=== PATIENT | male | born 1955 | race Caucasian/White ===

== ENCOUNTER 2020-02-04 21:51 | Emergency (ER) | payer OTHER, SELFPAY ==
--- NOTE | ~2020-02-04 | XR_ITS ---
XR hip LT 2V w AP pelvis DATE: 02/04/2020 22:30 INDICATION: Hip injury, pain TECHNIQUE: AP pelvis. AP and lateral views of left hip. COMPARISON: None FINDINGS: Surgical clips overlie the right lower abdomen and left pelvis. The pubic symphysis and sacroiliac joints are intact. No pelvic fracture or bone destruction is detec quang. No fracture or dislocation, avascular necrosis or bone destruction of the left hip. Hip joint sp aces are symmetric and relatively preserved. IMPRESSION: No pelvic or left hip fracture Reviewed, dictated and finalized at location A.
[2020-02-04 22:09] VITALS: BP 159/90; PULSE 64; RESP 16; TEMP 36.7; O2SAT 96
--- NOTE | 2020-02-04 22:09 | ED.LOWEXIN ---
HPI - Extremity Injury (Lower) General Chief Complaint: Extremity Injury, Lower Stated Complaint: pain L hip History of Present Illness HPI Narrative: This 65-year-old male that presents with left hip injury after he twisted it occurred 1 day ago having pain left hip area, has good range of motion with no point tenderness there is tenderness with movement did take Aleve earlier today with minimal relief currently no swelling no bruising. Patient has a history of hemorrhagic stroke with left-sided weakness, currently no fever chills no shortness of breath no nausea vomiting or abdominal pain no chest pain. MD complaint: hip injury Onset (ago): day(s) Injury: Left: hip Type of Injury: inversion Place: home Severity: mild Severity scale (1-10): 4 Relieving factors: NSAID Exacerbating factors: movement Context: fall Related Data Home Medications Medication Instructions Recorded Confirmed atorvastatin 10 mg PO DAILY 02/04/20 02/04/20 divalproex 500 mg PO DAILY 02/04/20 02/04/20 fluoxetine 20 mg PO DAILY 02/04/20 02/04/20 folic acid 1 mg PO DAILY 02/04/20 02/04/20 lisinopril 10 mg PO DAILY 02/04/20 02/04/20 tamsulosin 0.4 mg PO DAILY 02/04/20 02/04/20 Allergies Allergy/AdvReac Type Severity Reaction Status Date / Time No Known Allergies Allergy Unverified 03/27/19 13:39 Review of Systems Review of Systems: All systems reviewed & are unremarkable except as noted in HPI and below PMFSH Past Medical History Medical History Depression History of hemorrhagic stroke with residual hemiparesis HTN (hypertension) Exam Const: General: no acute distress and alert Orientation/consciousness: patient oriented x3 HENMT: Head: normal to inspection Eyes: Conjunctivae: conjunctivae normal Pupils: Equal, round and reactive pupils present Neck: Neck: normal visual inspection and no lymphadenopathy Chest: Chest palpation & inspection: normal inspection of the chest Resp: Effort & Inspection: normal respiratory effort Auscultation: clear to auscultation bilaterally Cardio: Rate: regular rate Rhythm: regular rhythm GI: GI Palp: Yes Soft to palpation Skin: General skin exam: normal color Rashes: no rashes Neuro: General: patient oriented x3, moves all extremities and no meningeal signs Extrem: Other: Left hip tender with movement, no bruising or swelling Psych: Mental Status: mental status grossly normal Affect: normal affect Attitude: cooperative Critical Care Time Critical Care Time Critical Care Time: No Discharge Plan Discharge Clinical Impression: Muscle strain of left hip Qualifiers: Encounter type: initial encounter Qualified Code(s): S76.012A - Strain of muscle, fascia and tendon of left hip, initial encounter Patient Disposition: Home, Self-Care Condition: Stable Instructions: Antibiotic Form, Hip Sprain (ED) Additional Instructions: Follow with your primary doctor if symptoms persist or worsen. Prescriptions: New naproxen 500 mg tablet 500 mg PO BID Qty: 14 RF: 0 No Action atorvastatin 10 mg tablet 10 mg PO DAILY RF: 0 tamsulosin 0.4 mg capsule 0.4 mg PO DAILY RF: 0 lisinopril 10 mg tablet 10 mg PO DAILY RF: 0 divalproex 500 mg tablet extended release 24 hr 500 mg PO DAILY RF: 0 folic acid 1 mg tablet 1 mg PO DAILY RF: 0 fluoxetine 20 mg capsule 20 mg PO DAILY RF: 0 Follow-up/Referrals: Jacky Torres MD [Primary Care Provider] - Time of Disposition: 22:33
[2020-02-04] MEDS: KETOROLAC (*BKC) 60 MG/2 ML VIAL IM (22:25)
[2020-02-04 22:41] VITALS: RESP 17
== END 2020-02-04 22:43 | disposition home or self-care (01) ==
PROVIDERS: Emergency Provider Emergency Medicine
DX: S76.012A Strain of muscle, fascia and tendon of left hip, initial encounter (principal)
CPT/HCPCS: 73502; 73521; 96372; 99283; J1885

== ENCOUNTER 2020-09-04 16:24 | Outpatient (CLI) | payer OTHER, SELFPAY ==
--- NOTE | ~2020-09-04 | CT_ITS ---
EXAMINATION: CT abdomen pelvis wo con DATE: 09/04/2020 17:02 INDICATION: Gross hematuria. TECHNIQUE: Computed tomography (CT) of the abdomen and pelvis was performed without intravenous contr ast. Automated exposure control and iterative reconstruction technique were employed. The dose-length product was 256.91 mGy-cm. COMPARISON: None. FINDINGS: The visualized portions of the lung bases demonstrate mild atelectasis. No pleural effusion . The heart size is normal. No pericardial effusion. The liver, gallbladder, spleen, pancreas, and ad renal glands are normal. There is a 17 mm cyst in right kidney. There is a 4 mm stone in right kidney . There are 3 mm, 3 mm, and 4 mm stones in left kidney. The prostate is moderately enlarged. There ar e no dilated loops of bowel. There are changes of appendectomy. There are no pathologically enlarged lymph nodes. There is a small umbilical hernia containing fat. There is no free intraperitoneal fluid . There are chronic bilateral L5 pars defects without spondylolisthesis. There is lumbar dextroscolio sis and severe lumbar spondylosis. IMPRESSION: 1. Bilateral nonobstructing kidney stones. Reviewed, dictated and finalized at location A. TER ASSISTANT
== END 2020-09-04 16:25 | disposition home or self-care (01) ==
LOC: CHSIMG 16:26
PROVIDERS: PCP Internal Medicine; Visit Provider Internal Medicine
DX: R31.0 Gross hematuria (principal)
CPT/HCPCS: 74176

== ENCOUNTER → 2020-09-19 14:09 | Outpatient (CLI) | payer OTHER, SELFPAY ==
--- NOTE | ~2020-09-19 | XR_ITS ---
EXAMINATION: XR abdomen/kub 1V DATE: 09/19/2020 14:38 INDICATION: Gross hematuria TECHNIQUE: A supine view of the abdomen on 2 radiographs was obtained. COMPARISON: CT dated 09/19/2020 FINDINGS: The 3 mm stone at the mid right kidney and 3 mm 5 mm stones at the mid to lower left kidney appear to be subtly evident on the plain radiographs although definitive determination is limited by the super imposed mottled pattern of stool and bowel gas. No stones seen along the course of the ureters. Surgi malu clips in the pelvis and right lower quadrant. No dilated loops of bowel to suggest obstruction. M ild lumbar dextrocurvature with moderate lower lumbar spondylosis. IMPRESSION: 1. Bilateral nephrolithiasis. Reviewed, dictated and finalized at location H. SPORT NURSE
--- NOTE | ~2020-09-19 | CT_ITS ---
EXAMINATION: CT abdomen pelvis wo/w con DATE: 09/19/2020 15:03 INDICATION: Gross hematuria TECHNIQUE: Computed tomography (CT) of the abdomen and pelvis was performed without and subsequently with 130 cc Omnipaque 350 intravenous contrast. Automated exposure control and iterative reconstructi on technique were employed. Exam dose: 1713.78 mGy-cm total exam DLP. COMPARISON: 09/04/2020 CT abdomen pelvis FINDINGS: Minimal atelectasis in the lower lung zones. There is cardiomegaly. No pericardial or pleur al effusion. The liver, gallbladder, bile ducts, pancreas, pancreatic duct and spleen are unremarkable. Normal mor phology of the adrenal glands. 1.7 cm lateral mid to upper right renal cyst. 4 mm nonobstructing mid right renal calculus. Approximately 3 mm and 5 mm nonobstructing mid left renal calculi. No ureteral calculus or hydrourete ronephrosis. The urinary bladder is unremarkable. There is moderate prostate enlargement and mild prostate calcification. Probable appendectomy. No bowel obstruction, bowel wall thickening, pneumatosis or intraperitoneal fr ee air. Bilateral L5 pars interarticularis defects with grade 1 anterolisthesis at L5-S1. Severe degenerative disease at L5-S1. Moderate degenerative disease at L3-4. Bilateral hip osteoarthritis, greater on the right. Diffuse osteopenia. No suspicious osteolytic or osteoblastic lesions are noted. IMPRESSION: Cardiomegaly 1.7 cm right renal cyst Mild bilateral nephrolithiasis; no ureteral calculus or hydroureteronephrosis Moderate prostate enlargement and prostate calcification Reviewed, dictated and finalized at Location A. Reviewed, dictated and finalized at location B. FIXER
[2020-09-19 14:37] LABS: Estimated Glomerular Filt Rate > 60
== END ==
PROVIDERS: PCP Internal Medicine; Visit Provider Urology
DX: R31.0 Gross hematuria (principal); N28.1 Cyst of kidney, acquired; N20.0 Calculus of kidney; N40.0 Benign prostatic hyperplasia without lower urinary tract symptoms; M47.817 Spondylosis without myelopathy or radiculopathy, lumbosacral region; M16.0 Bilateral primary osteoarthritis of hip; I51.7 Cardiomegaly
CPT/HCPCS: 74018; 74178; Q9967

== ENCOUNTER 2023-08-18 19:27 | Emergency (ER) | payer OTHER, SELFPAY ==
[2023-08-18] VITALS (7 sets, daily range): BP systolic 164–179; BP diastolic 82–91; PULSE 71–83; RESP 20–25; TEMP 36.9; O2SAT 92–100
--- NOTE | ~2023-08-18 | CT_ITS ---
EXAMINATION: CT brain wo con DATE: 08/18/2023 19:52 INDICATION: Confusion. Fall. TECHNIQUE: Computed tomography (CT) of the head was performed without intravenous contrast. The mA wa s adjusted according to patient size. Iterative reconstruction technique was employed. The dose-lengt h product was 681.00 mGy-cm. COMPARISON: Head CT 02/08/2017 FINDINGS: There is chronic encephalomalacia in right frontal lobe. There is an acute intraparenchymal hematoma in left temporal lobe with surrounding vasogenic edema. There is an acute subdural hematoma in left frontal temporal region and inferior to left temporal and occipital lobes with maximum thick ness of 5 mm. There is a hypodense right frontotemporal parietal subdural hematoma with maximum thick ness of 13 mm. There are scattered areas of low attenuation in the cerebral white matter. There is no acute ischemic infarct or abnormal mass lesion. The ventricles are normal in size. The orbits are no rmal. There are old fractures of right zygomaticomaxillary complex. The mastoid air cells are normal. IMPRESSION: 1. Acute intraparenchymal hematoma in left temporal lobe. 2. Acute left-sided subdural hematoma with maximum thickness of 5 mm. 3. Chronic right-sided subdural hematoma. 4. Chronic encephalomalacia in right frontal lobe. 5. Moderate nonspecific cerebral white matter disease, which likely represents chronic small vessel i schemic disease. Reviewed, dictated and finalized at location E. IMPRESSION: 1. Acute intraparenchymal hematoma in left temporal lobe. 2. Acute left-sided subdural hematoma with maximum thickness of 5 mm. 3. Chronic right-sided subdural hematoma. 4. Chronic encephalomalacia in right frontal lobe. 5. Moderate nonspecific cerebral white matter disease, which likely represents chronic small vessel ischemic disease.
--- NOTE | ~2023-08-18 | CT_ITS ---
EXAMINATION: CT cervical spine wo con DATE: 08/18/2023 19:52 INDICATION: Fall. TECHNIQUE: Computed tomography (CT) of the cervical spine was performed without intravenous contrast. Automated exposure control and iterative reconstruction technique were employed. The dose-length pro duct was 450.97 mGy-cm. COMPARISON: None FINDINGS: Calcified mediastinal lymph nodes are consistent with old granulomatous disease. There is 5 degrees levocurvature of cervicothoracic spine. Vertebral body heights are normal. There is moderate ly decreased disc height at C2-C3, mildly decreased disc height at C3-C4, and severely decreased disc height at C5-C6, C6-C7, and C7-T1. The following disc levels are specifically discussed: C2-C3: There is severe bilateral uncovertebral joint osteoarthritis. There is mild right and severe l eft facet joint osteoarthritis. There is mild left neural foraminal stenosis. There is mild central c anal stenosis. C3-C4: There is mild right and moderate left uncovertebral joint osteoarthritis. There is mild right and severe left facet joint osteoarthritis. There is mild left neural foraminal stenosis. There is mi ld central canal stenosis. C4-C5: There is mild bilateral uncovertebral joint osteoarthritis. There is moderate bilateral facet joint osteoarthritis. There is no neural foraminal stenosis. There is mild central canal stenosis. C5-C6: There is severe bilateral uncovertebral joint osteoarthritis. There is mild right and moderate left facet joint osteoarthritis. There is mild bilateral neural foraminal stenosis. There is mild ce ntral canal stenosis. C6-C7: There is severe bilateral uncovertebral joint osteoarthritis. There is mild bilateral facet sandeep int osteoarthritis. There is mild bilateral neural foraminal stenosis. There is mild central canal st enosis. C7-T1: There is severe right and mild left uncovertebral joint osteoarthritis. There is severe bilate ral facet joint osteoarthritis. There is mild bilateral neural foraminal stenosis. There is no centra l canal stenosis. IMPRESSION: 1. No fracture. 2. Severe cervical spondylosis. Reviewed, dictated and finalized at location E.
--- NOTE | ~2023-08-18 | XR_ITS ---
EXAMINATION: XR finger 3rd LT min 2V DATE: 08/18/2023 20:07 INDICATION: Left hand third digit injury and erythema. TECHNIQUE: 4 views of left hand third digit were obtained. COMPARISON: None. FINDINGS: Bone alignment is normal. No fracture. There is mild osteoarthritis of third proximal inter phalangeal joint and moderate osteoarthritis of third distal interphalangeal joint. IMPRESSION: 1. Polyarticular osteoarthritis. Reviewed, dictated and finalized at location E.
--- NOTE | 2023-08-18 19:34 | ED.FALL ---
HPI - Fall General Chief Complaint: Fall Stated Complaint: Ambulance Time Seen by Provider: 08/18/23 19:29 Source: patient, EMS and RN notes reviewed Mode of arrival: EMS Limitations: no limitations History of Present Illness HPI Narrative: patient has a history of a previous CVA from a hemorrhagic stroke. Apparently fell and hit his head on a coffee table. There was no laceration. He has mild hematoma on the left side of his parietal area. He also complains of some pain in his left middle finger. He also complained of pain in his neck. There has been some concern about altered mental status. Altered mental status started after the fall. complaint: fall Onset (ago): minute(s) (20) Fall from: standing Fall witnessed: yes, by family Place fall occurred: home Loss of consciousness: none Prolonged down time: no Symptoms prior to fall: lightheadedness Context: tripped/slipped and history of frequent falls Location of injury: head and neck Location of injury - extremities: Left: hand ( Middle finger) Severity: moderate Quality: dull and aching Associated symptoms (after fall): neck pain Related Data Home Medications Medication Instructions Recorded Confirmed atorvastatin 10 mg tablet (Lipitor) 10 mg PO DAILY 02/04/20 08/18/23 divalproex 500 mg tablet,extended 500 mg PO BID 02/04/20 08/18/23 release 24 hr (Depakote ER) fluoxetine 20 mg capsule (Prozac) 40 mg PO DAILY 02/04/20 08/18/23 folic acid 1 mg tablet 1 mg PO DAILY 02/04/20 08/18/23 lisinopril 10 mg tablet (Zestril) 10 mg PO DAILY 02/04/20 08/18/23 quetiapine 25 mg tablet (Seroquel) 25 mg PO BID 08/18/23 08/18/23 Allergies Allergy/AdvReac Type Severity Reaction Status Date / Time No Known Allergies Allergy Verified 08/18/23 19:44 Review of Systems Review of Systems: All systems reviewed & are unremarkable except as noted in HPI and below PMFSH Past Medical History Medical History (Updated 08/19/23 @ 00:00 by Lazaro Daagnieszka) Cerebral amyloid angiopathy Depression History of hemorrhagic stroke with residual hemiparesis HTN (hypertension) Surgical History Surgical History (Updated 08/18/23 @ 20:18 by Josué Holm MD) History of appendectomy Social History Social History (Updated 08/18/23 @ 20:22 by Josué Holm MD) Alcohol intake: former Exam Const: General: alert and confusion Nutritional Appearance: well nourished Limitations: altered mental status and physical limitations HENMT: Head: contusion left parietal Ears: external ears normal and TM's normal bilaterally Face/Nose/Sinus: Normal external nose present Face and sinus: normal facial exam Mouth: Yes Normal oral and palatal mucosa present Eyes: Conjunctivae: conjunctivae normal Pupils: Equal, round and reactive pupils present EOM: EOMs intact bilaterally Neck: Neck: normal visual inspection Resp: Effort & Inspection: normal respiratory effort Auscultation: clear to auscultation bilaterally Cardio: Rate: regular rate Rhythm: regular rhythm GI: GI Palp: Yes Soft to palpation and No Tenderness to palpation present (GI) Auscultation: normal bowel sounds Back/Spine/Pelvis: Cervical Spine: collar present ( removed following normal CT) and cervical muscular tenderness ( mild on the right) Thoracic/Lumbar Spine: thoraco-lumbar ROM normal Skin: General skin exam: normal color Rashes: no rashes Wounds: no wounds Neuro: General: moves all extremities, CN's II-XI intact bilaterally and other ( contracture flexure of the left arm and hand) Cranial nerves: Yes CN's II-XII intact bilaterally, Yes Equal, round and reactive pupils present and Yes Bilaterally intact EOM present Speech: normal speech Motor exam (neuro): 5/5 motor strength present throughout Extrem: General: no clubbing, cyanosis or edema Left upper extremity: hand abnormal ROM of finger pain with active ROM of the 3rd digit and pain with passive ROM of the 3rd digit and ecchymosis of the 3rd digit at th
[2023-08-18 20:24] LABS: Basophils Absolute Auto 0.02 K/mm3 (0.00-0.10); Basophils Percent Auto 0.2 % (0.0-1.0); Hematocrit 37.6 % (37.0-46.0); Hemoglobin 12.5 g/dL (12.4-15.3); Lymphocytes Absolute Auto 0.84 K/mm3 (1.10-4.50); Lymphocytes Percent Auto 8.1 % (18.0-42.0); Mean Corpuscular HGB Conc 33.2 g/dL (32.0-36.0); Mean Corpuscular Hemoglobin 29.2 pg (27.0-31.0); Mean Corpuscular Volume 87.9 fL (78.0-102.0); Monocytes Percent Auto 9.7 % (2.0-11.0); Neutrophils Absolute Auto 8.4 K/mm3 (1.7-7.2); Platelet Count Result 200 K/mm3 (150-420); Red Blood Count 4.28 M/mm3 (4.70-6.10); Red Cell Distribution Width 12.8 % (11.6-14.4); White Blood Count 10.4 K/mm3 (4.8-10.8)
[2023-08-18 20:38] LABS: Partial Thromboplastin Time 25.4 SEC (23.90-30.70); Prothrombin Time 10.9 Seconds (9.50-12.10)
[2023-08-18 20:39] LABS: Alanine Aminotransferase 15 U/L (16-63); Albumin Level 3.8 g/dL (3.4-5.0); Alkaline Phosphatase 83 U/L (46-116); Anion Gap 14 mmol/L (8-16); Aspartate Amino Transferase 26 U/L (15-37); Bilirubin,Total 0.6 mg/dL (0.00-1.00); Blood Urea Nitrogen 10 mg/dL (7-18); Calcium 8.9 mg/dL (8.5-10.1); Carbon Dioxide 24 mmol/L (21-32); Chloride 101 mmol/L (98-108); Estimated CRCL calculation 77 ml/min; Estimated Glomerular Filt Rate > 60; Glucose 162 mg/dL (70-99); Magnesium 2.1 mg/dL (1.8-2.4); Osmolality Calculated 291 mOsm/kg (285-295); Potassium 4.4 mmol/L (3.5-5.1); Sodium 139 mmol/L (136-145); Total Protein 6.8 g/dL (6.4-8.2)
== END 2023-08-18 20:59 | disposition short-term general hospital (02) ==
PROVIDERS: Emergency Provider Emergency Medicine; PCP Internal Medicine
DX: S06.320A Contusion and laceration of left cerebrum without loss of consciousness, initial encounter (principal); I10 Essential (primary) hypertension; F41.9 Anxiety disorder, unspecified; Z79.899 Other long term (current) drug therapy; W01.190A Fall on same level from slipping, tripping and stumbling with subsequent striking against furniture, initial encounter
CPT/HCPCS: 36415; 70450; 72125; 73140; 80053; 83735; 85025; 85610; 85730; 99291

== ENCOUNTER 2023-10-06 13:57 | Emergency (ER) | payer OTHER, SELFPAY ==
[2023-10-06] VITALS (12 sets, daily range): BP systolic 85–111; BP diastolic 51–68; PULSE 73–82; RESP 12–18; TEMP 36.4; O2SAT 96–100
--- NOTE | ~2023-10-06 | XR_ITS ---
EXAMINATION: XR chest 1V portable 10/06/2023 14:54 INDICATION: Accidental fall PROCEDURE: AP portable chest COMPARISON: 02/08/2017 FINDINGS: The lungs are clear. The cardiomediastinal silhouette is within normal limits. There are no pleural effusions. There is no pneumothorax suspected. IMPRESSION: 1: NO ACUTE CARDIOPULMONARY DISEASE. Reviewed, dictated and finalized at location L. ER MACHINE OPERATOR
--- NOTE | ~2023-10-06 | CT_ITS ---
EXAMINATION: CT pelvis wo con DATE: 10/06/2023 14:50 INDICATION: Fall TECHNIQUE: Computed tomography (CT) of the pelvis was performed without intravenous contrast. Automat ed exposure control and iterative reconstruction technique were employed. The dose-length product was 681.00 mGy-cm. COMPARISON: None FINDINGS: Bilateral chronic L5-S1 pars defects. Severe degenerative changes in the lower lumbar spine . Mild degenerative changes in the bilateral hips. No fracture or dislocation. Moderate wall thickeni ng and a partially distended urinary bladder. Prostatomegaly. Atherosclerotic calcifications. No free pelvic fluid. Unremarkable regional soft tissues. IMPRESSION: No acute osseous finding in the pelvis. Cystitis versus bladder wall thickening from outlet obstruction/incomplete distention. Reviewed, dictated and finalized at location K. N SAW MECHANIC IMPRESSION: No acute osseous finding in the pelvis. Cystitis versus bladder wall thickening from outlet obstruction/incomplete dist ention.
--- NOTE | ~2023-10-06 | CT_ITS ---
EXAMINATION: CT brain wo con DATE: 10/06/2023 14:50 INDICATION: Fall with head injury and right-sided head contusion.. TECHNIQUE: Computed tomography (CT) of the head was performed without intravenous contrast. Sagittal and coronal reconstructions were performed. The mA was adjusted according to patient size. Iterative reconstruction technique was employed. The dose-length product was 681.00 mGy-cm. COMPARISON: head CT dated 08/18/2023 FINDINGS: No acute fracture. Moderate-sized region of encephalomalacia in the right frontal and left temporal l obes consistent with chronic infarcts. The previously seen high attenuation intraparenchymal hemorrha ge seen in the region of the left temporal lobe infarct on the prior study has resolved. The prior ch ronic right frontoparietal subdural hematoma has resolved the prior small left frontal subdural hemat nica has decreased in size, now 304 mm in maximal thickness but with a minimal amount of high attenuat ion likely acute blood along the lateral aspect of the left anterior cranial fossa consistent with ac [place] on chronic hemorrhage. No acute acute infarction or abnormal mass lesion. There is a stable patte rn of moderate additional scattered white matter hypoattenuation consistent with chronic small vessel ischemic disease. Ventricles are normal and symmetric. The orbits, paranasal sinuses and mastoid ai r cells are normal. IMPRESSION: 1. Acute on chronic small left frontal subdural hematoma with interval resolution of the prior small chronic right subdural hematoma. Dr. Rendon discussed these findings with Dr. Martinez at 3:15 PM. 2. 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 3. Moderate scattered mesenteric cerebral white matter hypoattenuation consistent with chronic small vessel ischemic disease. Reviewed, dictated and finalized at location A. [employer] IMPRESSION: 1. Acute on chronic small left frontal subdural hematoma with interval resoluti on of the prior small chronic right subdural hematoma. Dr. Rendon discussed t hese findings with Dr. Martinez at 3:15 PM. 2. 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 3. Moderate scattered mesenteric cerebral white matter hypoattenuation consiste nt with chronic small vessel ischemic disease.
--- NOTE | ~2023-10-06 | CT_ITS ---
EXAMINATION: CT cervical spine wo con DATE: 10/06/2023 14:50 INDICATION: Neck pain after fall TECHNIQUE: Computed tomography (CT) of the cervical spine was performed without intravenous contrast. The dose-length product was 347 mGy-cm. Automated exposure control and iterative reconstruction tech [employer] were employed. COMPARISON: CT dated 08/18/2023 FINDINGS: Straightening of cervical lordosis. There is multilevel degenerative disc disease involving all cervical levels. There is moderate-severe multilevel facet and uncinate hypertrophy. There is em physema in the lung apices. No significant paraspinal soft tissue abnormality. There is carotid ather osclerosis. No vertebral junction is normal. Odontoid process is normal. No evidence for perched face t. IMPRESSION: 1. No acute abnormality of the cervical spine. 2: Severe cervical spondylosis. Reviewed, dictated and finalized at location L. [employer]
--- NOTE | 2023-10-06 14:16 | ED.FALL ---
HPI - Fall General Chief Complaint: Fall Stated Complaint: FALL Time Seen by Provider: 10/06/23 14:16 Source: EMS Mode of arrival: EMS History of Present Illness HPI Narrative: 68-year-old male with a history of hypertension, dyslipidemia,anxiety/ depression,, cerebral amyloid angiopathy, CVA with left hemiparesis, intracranial hemorrhage,encephalopathy and agitation presents from the longterm with -- recurrent falls. The patient fell at 6:00 a.m., 10:18 a.m. and 1:15 p.m. -- Increasing agitation -- marginal blood pressure patient answers in monosyllables. unable to carry on a conversation with the patient. the patient presented to the ER on 08/18/2023 and was noted to have an acute intraparenchymal hematoma in the left temporal lobe, acute left-sided subdural with a maximum thickness of 5 mm, chronic right-sided subdural hematoma, chronic encephalomalacia in the right frontal lobe and moderate nonspecific cerebral white matter disease. The patient was sent to [facility]. Subsequently the patient developed vasogenic edema with a 7 mm midline shift. The patient went on to have a middle meningeal artery embolization. Subsequently the patient was transferred to [facility] where he was treated for altered mental status and agitation. Subsequently the patient was transferred to [facility]. The patient is confused and intermittently agitated. MD complaint: fall Onset (ago): hour(s) ( 1 hour ago) Fall from: standing Fall witnessed: yes, by living facility staff Place fall occurred: longterm/SNF Loss of consciousness: none Prolonged down time: no Location of injury: head and face Related Data Home Medications Medication Instructions Recorded Confirmed atorvastatin 10 mg tablet (Lipitor) 40 mg PO DAILY 02/04/20 10/06/23 divalproex 500 mg tablet,extended 500 mg PO DAILY 02/04/20 10/06/23 release 24 hr (Depakote ER) fluoxetine 20 mg capsule (Prozac) 20 mg PO DAILY 02/04/20 10/06/23 folic acid 1 mg tablet 1 mg PO DAILY 02/04/20 10/06/23 lisinopril 10 mg tablet (Zestril) 10 mg PO DAILY 02/04/20 10/06/23 carvedilol 12.5 mg tablet 12.5 mg PO BID 09/12/23 10/06/23 finasteride 5 mg tablet 5 mg PO DAILY 09/12/23 10/06/23 Allergies Allergy/AdvReac Type Severity Reaction Status Date / Time No Known Allergies Allergy Verified 10/06/23 14:13 Review of Systems Review of Systems: All systems reviewed & are unremarkable except as noted in HPI and below ROS unobtainable: Yes unobtainable due to mental status Constitutional: Constitutional: Reports as per HPI PMFSH Past Medical History Medical History Cerebral amyloid angiopathy Depression History of hemorrhagic stroke with residual hemiparesis HTN (hypertension) Surgical History Surgical History History of appendectomy Family History Family History Father COPD (chronic obstructive pulmonary disease) Alcohol abuse Grandparent Alzheimer disease Grandparent Memory loss Social History Social History Smoking status: Former smoker Additional smoking assessment comments: pt states he used to smoke when drinking alcohol Alcohol intake: former Spiritual care concerns: No Exam Const: General: no acute distress Nutritional Appearance: well nourished Limitations: altered mental status and behavioral limitations Other: Patient has been HENMT: Head: normal to inspection Ears: external ears normal Face/Nose/Sinus: Normal external nose present Face and sinus: normal facial exam Mouth: Yes Normal oral and palatal mucosa present Eyes: Conjunctivae: conjunctivae normal Pupils: Equal, round and reactive pupils present EOM: EOMs intact bilaterally Neck: Neck: normal visual inspection Chest:
--- NOTE | 2023-10-06 15:23 | ECG_ITS ---
Measurements Intervals [place] Rate: 72 P: 68 WV: 172 QRS: 37 QRSD: 98 T: 53 QT: 397 QTc: 437 Interpretive Statements SINUS RHYTHM NO PREVIOUS ECG AVAILABLE FOR COMPARISON Electronically Signed On 10-06-2023 20:13:53 [employer] by Pamela Schwarz M.D.
--- NOTE | 2023-10-06 15:37 | PC.NURSE ---
HAS ARRIVED AT BEDSIDE. PT HAS BEEN CALM AND COOPERATIVE THROUGHOUT ED VISIT THUS FAR. PT NEEDS TO BE TRANSFERRED, REQUESTS JACK. ERP IS SPEAKING WITH JACK AT THIS TIME. REPORTS PT IS A FULL CODE. PT AROUSES TO VERBAL STIMULI. VSS PER MONITOR. WILL CONTINUE TO MONITOR.
[2023-10-06 15:46] LABS: Basophils Absolute Auto 0.02 K/mm3 (0.00-0.10); Basophils Percent Auto 0.4 % (0.0-1.0); Eosinophils Absolute Auto 0.06 K/mm3 (0.02-0.50); Eosinophils Percent Auto 1.1 % (1.0-6.0); Hematocrit 35.3 % (37.0-46.0); Hemoglobin 11.5 g/dL (12.4-15.3); Immature Granulocyte Absolute 0.02 K/mm3 (0.00-0.00); Immature Granulocyte Percent A 0.4 % (0.0-0.0); Lymphocytes Absolute Auto 1.76 K/mm3 (1.10-4.50); Lymphocytes Percent Auto 31.8 % (18.0-42.0); Mean Corpuscular HGB Conc 32.6 g/dL (32.0-36.0); Mean Corpuscular Hemoglobin 29.3 pg (27.0-31.0); Mean Corpuscular Volume 89.8 fL (78.0-102.0); Mean Platelet Volume 8.9 fl (8.7-11.0); Monocytes Absolute Auto 0.52 K/mm3 (0.10-0.90); Monocytes Percent Auto 9.4 % (2.0-11.0); Neutrophils Absolute Auto 3.2 K/mm3 (1.7-7.2); Neutrophils Percent Auto 56.9 % (50.0-70.0); Platelet Count Result 198 K/mm3 (150-420); Red Blood Count 3.93 M/mm3 (4.70-6.10); Red Cell Distribution Width 13.3 % (11.6-14.4); White Blood Count 5.5 K/mm3 (4.8-10.8)
[2023-10-06 16:01] LABS: Partial Thromboplastin Time 27.5 SEC (23.90-30.70); Prothrombin Time 10.7 Seconds (9.50-12.10)
[2023-10-06 16:07] LABS: Alanine Aminotransferase 20 U/L (16-63); Albumin Level 3.1 g/dL (3.4-5.0); Alkaline Phosphatase 84 U/L (46-116); Anion Gap 1 mmol/L (8-16); Aspartate Amino Transferase 10 U/L (15-37); Bilirubin,Total 0.2 mg/dL (0.00-1.00); Blood Urea Nitrogen 14 mg/dL (7-18); Calcium 8.6 mg/dL (8.5-10.1); Carbon Dioxide 30 mmol/L (21-32); Chloride 98 mmol/L (98-108); Estimated CRCL calculation 59 ml/min; Estimated Glomerular Filt Rate > 60; Glucose 141 mg/dL (70-99); Osmolality Calculated 270 mOsm/kg (285-295); Potassium 3.9 mmol/L (3.5-5.1); Sodium 129 mmol/L (136-145); Total Protein 6.2 g/dL (6.4-8.2)
[2023-10-06 16:08] LABS: Troponin I < 4.0 ng/L (0.00-60.4)
--- NOTE | 2023-10-06 16:11 | PC.NURSE ---
NO CHANGE IN PT STATUS. PT REMAINS CALM, PT DOES RECOGNIZE SISTER IN LAW AND , HOWEVER DOES NOT KNOW THE DAY, WHERE HE IS , OR WHAT HAPPENED. PT RESPONDS TO PAINFUL STIMULI, IS COOPERATIVE WITH CARE. PT AROUSES TO VERBAL STIMULI. PT DOES ANSWER QUESTIONS WITH INAPPROPRIATE RESPONSES, NORMAL PER FAMILY. PT IS AWAITING EMS FOR TRANSPORT.
== END 2023-10-06 16:36 | disposition short-term general hospital (02) ==
PROVIDERS: Emergency Provider Internal Medicine Critical Care Medicine; PCP Internal Medicine
DX: S06.5XAA Traumatic subdural hemorrhage with loss of consciousness status unknown, initial encounter (principal); S06.9XAA Unspecified intracranial injury with loss of consciousness status unknown, initial encounter; I10 Essential (primary) hypertension; E78.5 Hyperlipidemia, unspecified; F41.9 Anxiety disorder, unspecified; F32.A Depression, unspecified; Z87.891 Personal history of nicotine dependence; W19.XXXA Unspecified fall, initial encounter; Y92.129 Unspecified place in nursing home as the place of occurrence of the external cause
CPT/HCPCS: 36415; 70450; 71045; 72125; 72192; 80053; 84484; 85025; 85610; 85730; 93005; 99285

== ENCOUNTER 2023-11-03 16:24 | Outpatient (NON) | payer OTHER, SELFPAY ==
[2023-11-03 17:15] LABS: Influenza Control Valid (Valid)
== END 2023-11-03 16:25 | disposition home or self-care (01) ==
PROVIDERS: Visit Provider Internal Medicine
DX: R68.89 Other general symptoms and signs (principal)
CPT/HCPCS: 87804